=== PATIENT | female | born 1970 | race Caucasian/White ===

== ENCOUNTER → 2019-10-18 12:50 | Outpatient (CLI) | payer OTHER, SELFPAY ==
--- NOTE | ~2019-10-18 | MM_ITS ---
EXAMINATION: MM screening rox BI w ricardo HISTORY: Screening mammogram TECHNIQUE: Craniocaudal and mediolateral oblique 3-D tomosynthesis images were obtained and synthetic 2-D images were generated. CAD analysis was submitted and interpreted. COMPARISON: 07/09/2018 bilateral digital screening mammogram 11/01/2016 diagnostic right digital mammogram 10/17/2016 bilateral digital screening mammogram BREAST PARENCHYMAL COMPOSITION: There are scattered areas of fibroglandular density. FINDINGS: There is no evidence of suspicious mass, calcification, or architectural distortion to sugg est malignancy in either breast. There has been no suspicious interval change. IMPRESSION: 1. No mammographic evidence of malignancy. 2. Recommend routine screening mammography in one year. BI-RADS Category 1: Negative Reviewed, dictated and finalized at location A.
== END ==
PROVIDERS: Visit Provider Nurse Practitioner
DX: Z12.31 Encounter for screening mammogram for malignant neoplasm of breast (principal)
CPT/HCPCS: 77063; 77067

== ENCOUNTER → 2021-06-23 13:32 | Outpatient (CLI) | payer OTHER, SELFPAY ==
--- NOTE | ~2021-06-23 | MM_ITS ---
EXAMINATION: MM screening rox BI w ricardo HISTORY: Screening mammogram TECHNIQUE: Craniocaudal and mediolateral oblique 3-D tomosynthesis images were obtained and synthetic 2-D images were generated. CAD analysis was submitted and interpreted. COMPARISON: 10/18/2019, 07/09/2018 bilateral screening mammogram examinations BREAST PARENCHYMAL COMPOSITION: There are scattered areas of fibroglandular density. FINDINGS: There is no evidence of suspicious mass, calcification, or architectural distortion to sugg est malignancy in either breast. There has been no suspicious interval change. IMPRESSION: 1. No mammographic evidence of malignancy. 2. Recommend routine screening mammography in one year. BI-RADS Category 1: Negative Reviewed, dictated and finalized at location A. 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
== END ==
PROVIDERS: PCP Family Medicine Sports Medicine; Visit Provider Nurse Practitioner
DX: Z12.31 Encounter for screening mammogram for malignant neoplasm of breast (principal)
CPT/HCPCS: 77063; 77067

== ENCOUNTER 2022-03-24 10:15 | Day surgery (SDC) | payer OTHER, SELFPAY ==
[2022-01-24 14:23] VITALS: BMI 29.2
[2022-03-11 08:00] VITALS: BMI 26.9
--- NOTE | 2022-03-22 09:30 | P.HP_ITS ---
History of Present Illness History of Present Illness Consent: Risks, benefits, and alternatives have been discussed and questions answered. Patient agrees to proceed with procedure. Chief complaint: Positive Cologard Narrative: * Shanell Clayton is a 51 year old female referred for colon cancer screening. She performed a Cologuard test which was positive. Review of Systems Review of Systems: All systems reviewed & are unremarkable except as noted in HPI and below PMFSH Past Medical History Medical History Anxiety Depression GERD (gastroesophageal reflux disease) Hypertension Family History Family History Mother Breast cancer Diabetes mellitus Social History Social History Smoking status: Never smoker Alcohol intake: never Substance use: never Substance use type: does not use Living arrangements: with family Spiritual care concerns: No Meds Home Medications and Allergies Home Medications Medication Instructions Recorded Confirmed Type biotin 10,000 mcg capsule 10,000 mcg PO DAILY 03/11/22 03/24/22 History loratadine 10 mg tablet (Claritin) 10 mg PO DAILY 03/11/22 03/24/22 History multivit with minerals-iron 18 1 tablet PO DAILY 03/11/22 03/24/22 History mg-folic ac 400 mcg-vit K 25 mcg tablet (Adults Multivitamin) olmesartan 40 mg tablet 40 mg PO DAILY 03/11/22 03/24/22 History omeprazole 40 mg capsule,delayed 40 mg PO DAILY 03/11/22 03/24/22 History release paroxetine HCl 10 mg tablet (Paxil) 10 mg PO DAILY 03/11/22 03/24/22 History phentermine 37.5 mg tablet 37.5 mg PO DAILY 03/11/22 03/24/22 History valacyclovir 500 mg tablet 500 mg PO DAILY 03/11/22 03/24/22 History (Valtrex) Allergies Allergy/AdvReac Type Severity Reaction Status Date / Time latex Allergy Mild Rash Verified 03/24/22 10:52 NEOSPORIN Allergy Mild Swelling Uncoded 03/24/22 10:52 Exam Const: General: alert Orientation/consciousness: patient oriented x3 Resp: Auscultation: clear to auscultation bilaterally Cardio: Rhythm: regular rhythm GI: GI Palp: Yes Soft to palpation and No Tenderness to palpation present (GI) Neuro: General: patient oriented x3 Assessment and Plan Assessment and plan (1) Colon cancer screening: Code(s): Z12.11 - Encounter for screening for malignant neoplasm of colon Status: Acute Assessment and Plan: Colonoscopy with possible biopsy or polypectomy or cautery or injection of substances.
--- NOTE | 2022-03-24 07:56 | WPDANESEPPF ---
Anes - Initial Pre Proc Eval Procedure: Operation Date: 03/24/22 12:00 Proposed Procedures p Diagnostic Colonoscopy - Avinash Branch MD Date/Time: 03/24/22 07:56 Surgeon: Avinash Branch MD Pre Op Diagnosis: Positive Cologard Patient Data Age: 51 Gender: F Height: 1.63 m Weight: 71 kg Allergies Allergy/AdvReac Type Severity Reaction Status Date / Time latex Allergy Mild Rash Verified 03/24/22 10:52 NEOSPORIN Allergy Mild Swelling Uncoded 03/24/22 10:52 Home Medications Medication Instructions Recorded Confirmed Type biotin 10,000 mcg capsule 10,000 mcg PO DAILY 03/11/22 03/24/22 History loratadine 10 mg tablet (Claritin) 10 mg PO DAILY 03/11/22 03/24/22 History multivit with minerals-iron 18 1 tablet PO DAILY 03/11/22 03/24/22 History mg-folic ac 400 mcg-vit K 25 mcg tablet (Adults Multivitamin) olmesartan 40 mg tablet 40 mg PO DAILY 03/11/22 03/24/22 History omeprazole 40 mg capsule,delayed 40 mg PO DAILY 03/11/22 03/24/22 History release paroxetine HCl 10 mg tablet (Paxil) 10 mg PO DAILY 03/11/22 03/24/22 History phentermine 37.5 mg tablet 37.5 mg PO DAILY 03/11/22 03/24/22 History valacyclovir 500 mg tablet 500 mg PO DAILY 03/11/22 03/24/22 History (Valtrex) Patient hx anesthesia problems: none Family hx anesthesia problems: none Results Review: All pre-operative results and documents have been reviewed as part of the pre-operative evaluation. [facility] Past Medical History Medical History (Updated 03/24/22 @ 07:57 by Catarino Dick DO) Anxiety Depression GERD (gastroesophageal reflux disease) Hypertension Family History Family History (Updated 01/21/21 @ 11:05 by Carlee Dawson) Mother Breast cancer Diabetes mellitus Social History Social History (Updated 01/21/21 @ 11:05 by Carlee Dawson) Smoking status: Never smoker Alcohol intake: never Substance use: never Substance use type: does not use Living arrangements: with family Spiritual care concerns: No Anes - Eval Final PreProcedure Day of Procedure 03/24/22 07:56 Patient weight: overweight Heart: regular rate and rhythm Lungs: clear to auscultation Airway: Mallampati scale class II Neurological: alert and oriented Last oral intake: >/= 8 hours ASA classification: II Emergent: no Anesthetic plan: proceed Anesthesia type and monitoring: general GIVS and standard monitoring Results Review: All pre-operative results and documents have been reviewed as part of the pre-operative evaluation. Informed Consent: The patient's anesthetic plan and its attendant risks and benefits were discussed with the patient/family/POA. Questions were solicited and answers provided to the satisfaction of the patient/family/POA.
[2022-03-24 10:55] VITALS: BP 142/63; PULSE 110; RESP 16; TEMP 36.8; O2SAT 100
[2022-03-24 10:57] VITALS: BMI 27.2
[2022-03-24] MEDS: LACTATED RINGERS 1,000 ML 150 ML IV CONT (11:02)
[2022-03-24 12:09] VITALS: BP 131/90; PULSE 100; RESP 16; O2SAT 100
[2022-03-24 12:19] VITALS: BP 131/104; PULSE 101; RESP 16; O2SAT 98
[2022-03-24 12:29] VITALS: BP 130/96; PULSE 104; RESP 16; O2SAT 98
--- NOTE | 2022-03-24 12:48 | WPDANESPN ---
Anes - Prog Note Post-Op Date/Time: 03/24/22 12:48 Cardiovascular status: normal Respiratory status: normal Airway patency: baseline Mental status: baseline Post-Op hydration status: normal Vital Signs: Last Vital Signs Temp 36.8 C 03/24/22 10:55 Pulse 104 H 03/24/22 12:29 Resp 16 03/24/22 12:29 BP 130/96 H 03/24/22 12:29 Pulse Ox 98 03/24/22 12:29 O2 Del Method Room Air 03/24/22 12:29 Pain Score (VAS): 0 I/O: Intake & Output 03/23/22 03/24/22 03/24/22 23:59 07:59 15:59 Intake Total 500 Balance 500 Post-procedural complaints: none Patient Feedback: Patient satisfied with anesthetic care. Other Findings: Patient vital signs back to baseline. Patient denies nausea and vomiting. Patient's pain under control. Patient OK for discharge.
== END 2022-03-24 13:00 | disposition home or self-care (01) ==
PROVIDERS: PCP Family Medicine Sports Medicine; Visit Provider Internal Medicine Gastroenterology
PROC: 0DJD8ZZ Inspection of Lower Intestinal Tract, Via Natural or Artificial Opening Endoscopic (ICD-10-PCS; CPT 45378; principal; 2022-03-24 12:00)
DX: Z12.11 Encounter for screening for malignant neoplasm of colon (principal)
CPT/HCPCS: 45378

== ENCOUNTER → 2023-06-07 15:16 | Outpatient (CLI) | payer OTHER, SELFPAY ==
--- NOTE | ~2023-06-07 | MM_ITS ---
EXAMINATION: MM screening rox BI w ricardo HISTORY: Screening mammogram TECHNIQUE: Craniocaudal and mediolateral oblique 3-D tomosynthesis images were obtained and synthetic 2-D images were generated. CAD analysis was submitted and interpreted. COMPARISON: 06/23/2021, 10/18/2019 bilateral screening mammogram examinations BREAST PARENCHYMAL COMPOSITION: FINDINGS: 2 There is no evidence of suspicious mass, calcification, or architectural distortion to craig ggest malignancy in either breast. There has been no suspicious interval change. IMPRESSION: 1. No mammographic evidence of malignancy. 2. Recommend routine screening mammography in one year. BI-RADS Category 1: Negative Reviewed, dictated and finalized at location A. DERMATOLOGY
== END ==
PROVIDERS: PCP Nurse Practitioner; Visit Provider Nurse Practitioner
DX: Z12.31 Encounter for screening mammogram for malignant neoplasm of breast (principal)
CPT/HCPCS: 77063; 77067

== ENCOUNTER 2024-06-10 15:21 | Outpatient (CLI) | payer OTHER, SELFPAY ==
--- NOTE | ~2024-06-10 | MM_ITS ---
EXAMINATION: MM screening rox BI w ricardo HISTORY: Screening TECHNIQUE: Craniocaudal and mediolateral oblique 3-D tomosynthesis images were obtained and synthetic 2-D images were generated. CAD analysis was submitted and interpreted. COMPARISON: Comparison to multiple prior studies sequentially, with oldest reviewed study dated 10/17. BREAST PARENCHYMAL COMPOSITION: Not dense: There are scattered areas of fibroglandular density. FINDINGS: There is no evidence of suspicious mass, calcification, or architectural distortion to sugg est malignancy in either breast. There has been no suspicious interval change. IMPRESSION: 1. No mammographic evidence of malignancy. 2. Recommend routine screening mammography in one year. BI-RADS Category 1: Negative Reviewed, dictated and finalized at location B. NDS CLEANER
== END 2024-06-10 15:22 | disposition home or self-care (01) ==
LOC: MICIMG 15:22
PROVIDERS: PCP Nurse Practitioner; Visit Provider Nurse Practitioner
DX: Z12.31 Encounter for screening mammogram for malignant neoplasm of breast (principal)
CPT/HCPCS: 77063; 77067

== ENCOUNTER 2025-06-12 15:44 | Outpatient (CLI) | payer OTHER, SELFPAY ==
--- NOTE | ~2025-06-12 | MM_ITS ---
EXAMINATION: MM screening rox BI w ricardo HISTORY: Screening. TECHNIQUE: Craniocaudal and mediolateral oblique 3-D tomosynthesis images were obtained and synthetic 2-D images were generated. CAD analysis was submitted and interpreted. COMPARISON: 2023, 2022, and 2020. BREAST PARENCHYMAL COMPOSITION: Not Dense: There are scattered areas of fibroglandular FINDINGS: No suspicious masses are seen. There are no suspicious calcifications. No unexplained architectural distortion is seen. There are no skin or nipple abnormalities identified. There is no adenopathy seen on the images submitted. IMPRESSION: No mammographic evidence to suggest malignancy is seen. The patient may return to screening mammography as per ACR guidelines. BI-RADS 1 - Negative. Reviewed, dictated and finalized at location C. E HELPER
== END 2025-06-12 15:45 | disposition home or self-care (01) ==
LOC: MICIMG 15:44
PROVIDERS: PCP Obstetrics & Gynecology Gynecology; Visit Provider Obstetrics & Gynecology Gynecology
DX: Z12.31 Encounter for screening mammogram for malignant neoplasm of breast (principal)
CPT/HCPCS: 77063; 77067